=== PATIENT | female | born 1985 | race Caucasian/White ===

== ENCOUNTER 2019-10-13 16:22 | Emergency (ER) | payer SELFPAY ==
[~2019-10-13] VITALS: Ht 167.6 cm; Wt 81.8 kg
[~2019-10-13 16:22] MED LIST: BACTRIM DS1 TAB OR; MUPIROCIN2 % EX; NAPROSYN500 MG OR; NO MEDS
[2019-10-13 17:43] LABS: HEMOGLOBIN 12.9 g/dl (12.0-16.0); IMMATURE GRANULOCYTES 0.6 % (0.0-5.0); MEAN CORPUSCULAR HGB 27.9 pG CALC (26.0-32.0); MEAN CORPUSCULAR HGB CONC 33.1 g/dL CAL (32.0-36.0); NEUT# 4.15 thou/uL (2.00-7.15); RED BLOOD COUNT 4.63 mill/uL (4.20-5.60); RED CELL DISTRI WIDTH 14.2 % (11.5-15.5)
[2019-10-13 17:51] LABS: MEAN CELL VOLUME 84.2 fL CALC (80.0-100.0)
[2019-10-13 18:13] LABS: ALBUMIN 3.9 g/dL (3.2-5.0); ALKALINE PHOSPHATASE 75 u/l (38-126); BILIRUBIN, TOTAL 0.3 mg/dL (0.0-1.4); BUN 12 mg/dL (7-17); BUN/CREATININE RATIO 18 (12-20 (CALC)); C-REACTIVE PROTEIN 0.9 mg/dL (0-0.9); CHLORIDE 106 mmol/l (95-108); CREATININE 0.7 mg/dL (0.5-1.0); GFR > 60 ML/MIN (>=60 (CALC)); GFR FOR AFR.AMER. > 60 ML/MIN (>=60 (CALC)); POTASSIUM 3.6 mmol/l (3.5-5.1); SGOT/AST 26 u/l (14-36)
[2019-10-13 18:19] LABS: ANION GAP 10 (6-22 (CALC)); CARBON DIOXIDE 24 mmol/l (22-30); SODIUM 136 mmol/l (137-146)
[2019-10-13] MEDS ORDERED: ZPAK PO (18:52)
[2019-10-13 19:00] VITALS: BP 108/87
--- NOTE | 2019-10-19 10:47 | NUR ---
Notified patient of +Covid results. Patient denies fever or dyspnea. Advised patient to quarantine until contacted by [facility] [place] with [place] instructions. Advised patient to drink plenty of fluids and to rest. Advised patient to return to ED with difficulty breathing or other urgent needs. Patient verbalized understanding.
== END 2019-10-13 19:08 | disposition home or self-care (01) | DRG 179 ==
LOC: ED 16:22
PROVIDERS: Family Medicine
DX: U07.1 COVID-19 (principal); J06.9 Acute upper respiratory infection, unspecified

== ENCOUNTER 2021-02-02 16:41 | Emergency (ER) | payer SELFPAY ==
[~2021-02-02] VITALS: Ht 167.6 cm; Wt 78.0 kg
[~2021-02-02 16:41] MED LIST changes: +ZPAK PO
[2021-02-02] MEDS ORDERED: AMOXICILLIN875 MG PO (17:22)
[2021-02-02 17:32] VITALS: BP 138/71
== END 2021-02-02 17:32 | disposition home or self-care (01) | DRG 159 ==
LOC: ED 16:41
DX: K04.7 Periapical abscess without sinus (principal); S02.5XXA Fracture of tooth (traumatic), initial encounter for closed fracture; X58.XXXA Exposure to other specified factors, initial encounter

== ENCOUNTER 2024-03-16 17:44 | Emergency (ER) | payer OTHER ==
[2024-03-16] VITALS (7 sets, daily range): BP systolic 120–147; BP diastolic 70–88
[~2024-03-16] VITALS: Ht 167.6 cm; Wt 74.0 kg
[~2024-03-16 17:44] MED LIST changes: +AMOXICILLIN875 MG PO
[2024-03-16] MEDS ORDERED: KETOROLAC TROMETHAMINE 30 MG/ML SDV IM ONE (18:20)
[2024-03-16] MEDS ORDERED: Diph, Acellular Pertussis, Tet 0.5 ML/VIAL (Tdap) SDV IM ONE (18:20)
[2024-03-16] MEDS ORDERED: NAPROXEN500 MG PO (19:31)
[2024-03-16] MEDS ORDERED: METHOCARBAMOL500 MG PO (19:31)
== END 2024-03-16 19:36 | disposition home or self-care (01) | DRG 563 ==
LOC: ED 17:44
DX: S46.911A Strain of unspecified muscle, fascia and tendon at shoulder and upper arm level, right arm, initial encounter (principal); S60.511A Abrasion of right hand, initial encounter; W01.0XXA Fall on same level from slipping, tripping and stumbling without subsequent striking against object, initial encounter; Y92.008 Other place in unspecified non-institutional (private) residence as the place of occurrence of the external cause